=== PATIENT | female | born 1960 | race Caucasian/White ===

== ENCOUNTER 2017-07-07 10:14 | Day surgery (SDC) | payer OTHER ==
[2017-07-07] VITALS (12 sets, daily range): BP systolic 124–141; BP diastolic 51–65; PULSE 66–89; RESP 16–21
--- NOTE | 2017-07-07 07:04 | PREOPHP ---
DATE OF ADMISSION: 07/07/2017 REASON FOR ADMISSION: A 58-year-old patient is going to be admitted for diagnostic arthroscopy of the left knee, partial mediolateral meniscectomy, possibility of repair, plica release, application of Parkinson dressing. HISTORY OF PRESENT ILLNESS: This 58-year-old patient has been experiencing knee pain for quite awhile. Conservative treatment resulted in little benefit to the patient and the patient as requested surgical intervention. PAST MEDICAL HISTORY: Unremarkable. SOCIAL HISTORY: Nonsmoker, nondrinker. FAMILY HISTORY: Negative. ALLERGIES: ALLERGY. MEDICATIONS: 1. Amlodipine. 2. Sulindac. 3. Folic acid. 4. D3. 5. For postop Tylenol #3 and Bactrim DS. REVIEW OF SYSTEMS: PHYSICAL EXAMINATION: SKIN: Within normal limits. HEENT: PERRLA. Head and neck normocephalic. Trachea midline. CARDIAC: Normal sinus rhythm, S1 and S2 normal. No murmur, no JVD, no peripheral edema. LUNGS: Clear. ABDOMEN: Soft, scaphoid, no organomegaly, no mass, bowel sounds present. GENITOURINARY AND RECTAL: Not done, not pertinent to this admission. MUSCULOSKELETAL EVALUATION: Height 5 feet 5 inches, weighing 150 pounds. Head and neck unremarkable. Upper extremities normal. Normal neurovascular examination. Spine shows no tenderness. Range of motion normal. Hips and lower extremities symmetrical and normal except for knees. There is mild synovitis and effusion present in both knees. Range of motion is 0 to 120 degrees. Tenderness to the medial and lateral tibial femoral joint line. There is tenderness to the medial and lateral patellofemoral joint line. No instability. DIAGNOSTIC DATA: MRI of left knee indicates torn medial meniscus, torn lateral meniscus, some arthritis, joint effusion. IMPRESSION: Torn medial meniscus and torn lateral meniscus, left knee. PLAN: Alternatives, risks and benefits discussed. The patient understands the possibility of complications from surgery such as infection, nerve damage, vascular damage, possibility of deep venous thrombosis, pulmonary embolism, hypersensitivity from medication and even . Williams result may not be obtained depending on known or unknown factor or factors. Formal H and P supposed to be done by PCP. Dictated By: Walter Moreno MD /kera/flo /Document#: [id number]
[~2017-07-07 10:14] MED LIST: CEFAZOLIN 1 GM INJ ONE; SEVOFLURANE 15 MIN ONE
[2017-07-07] MEDS ORDERED: AMLO-147 PO (11:43)
[2017-07-07] MEDS ORDERED: LIDOCAINE 2% (SDV) 5 ML INJ ONE (12:00)
[2017-07-07] MEDS ORDERED: PROPOFOL 20 ML ONE (12:01)
[2017-07-07] MEDS ORDERED: FENTAnyl 50 MCG/ML VIAL ONE ×2 (12:01→14:14)
[2017-07-07] MEDS ORDERED: ROCURONIUM 50 MG INJ ONE (12:01)
[2017-07-07] MEDS ORDERED: NEOSTIGMINE 3 MG/3 ML SYRINGE ONE (12:01)
[2017-07-07] MEDS ORDERED: GLYCOPYRROLATE 0.4 MG INJ ONE (12:01)
[2017-07-07] MEDS ORDERED: MIDAZOLAM 1 MG/ML 2 ML INJ ONE (12:01)
[2017-07-07] MEDS ORDERED: ONDANSETRON 4 MG INJ ONE (12:03)
[2017-07-07] MEDS ORDERED: DEXAMETHASONE 4 MG/ML 1 ML INJ ONE (12:03)
[2017-07-07] MEDS ORDERED: SUGAMMADEX SODIUM 200 MG/2 ML VIAL IV ONE (12:04)
[2017-07-07] MEDS ORDERED: SODIUM CL BACTERIOSTATIC 30 ML INJ ONE (12:06)
[2017-07-07] MEDS ORDERED: morphine SULFATE/PF (10 MG/10 ML) INJ ONE (12:07)
[2017-07-07] MEDS ORDERED: EPINEPHrine 1 MG/ML 30 ML INJ ONE (13:00)
--- NOTE | 2017-07-07 13:53 | SIPON ---
Date/Time of Note Date/Time of Note DATE: 07/07/17 TIME: 13:50 Operative Report Free Text/Dictation No assist Preoperative Diagnosis Torn meniscus left knee and synovitis Postoperative Diagnosis The same Operation/Procedure Performed Diagnostic arthroscopy subtotal medial meniscus partial lateral portion was seen complication of April Surgeon: FELIX RUSSELL MD Anesthesia Type: general Estimated Blood Loss: minimal Transfusion Required: no Specimen: none Grafts/Implants: none Complications: no FELIX RUSSELL MD Jul 07, 2017 13:53
[2017-07-07] MEDS ORDERED: HYDROCODONE/APAP (5/325) TAB PO PRN ×2 (14:00)
--- NOTE | 2017-07-07 14:03 | RADRPT ---
PROCEDURE: XR Chest. CLINICAL INDICATION: Preoperative for knee surgery. TECHNIQUE: Single frontal view. COMPARISON: None. FINDINGS: The lungs are clear. The heart size is normal. There is calcification in the aorta consistent with atherosclerosis. There is no pleural effusion. There is no pneumothorax. IMPRESSION: 1. Atherosclerosis. 2. Otherwise normal chest radiograph. RPTAT: QQ .Nicola Miller MD, MD Date Time Electronically viewed and signed by .Nicola Miller MD, MD on 07/07/2017 14:02 .R/
[2017-07-07] MEDS ORDERED: FENTAnyl 50 MCG/ML VIAL IV PRN ×2 (14:30)
[2017-07-07] MEDS ORDERED: ONDANSETRON 4 MG INJ IV STA (15:26)
--- NOTE | 2017-07-07 15:44 | OPR ---
DATE OF OPERATION: 07/07/2017 PREOPERATIVE DIAGNOSIS: Torn menisci, left knee, and synovitis. POSTOPERATIVE DIAGNOSIS: Torn menisci, left knee, and synovitis. OPERATIONS PERFORMED: 1. Subtotal medial meniscectomy. 2. Partial lateral meniscectomy. 3. Synovectomy. 4. Application of Parkinson dressing. ANESTHESIA: General. ESTIMATED BLOOD LOSS: Minimal. COMPLICATIONS: None. OPERATIVE PROCEDURE: The patient was transferred to the operating room and placed onto the operating table in supine position. General anesthesia was induced. One gram of Ancef was given IV. The patient's left lower extremity was prepped and draped in the routine fashion. Landmarks were marked, 2 regular and 2 anterior portals, and operative arthroscopy was commenced. Examination of suprapatellar pouch indicates normal findings, a nonfibrotic small plica band was identified. There was a lot of debris in the knee. There was also some loose body in medial and lateral compartment. The patella was engaging a 35 degree trochlear groove, grade 2 chondromalacia of both sides. Going to the medial compartment, there was grade 2, minimally grade 3 chondromalacia present on the articular surface, especially from the condyles. There was a complex tear all the way from the anterior horn middle third and posterior horn of the lateral meniscus. Therefore, partial medial menisectomy to stable margins were done. This was a complex tear, a combination of vertical tear, flap tear, cartilage tear and oblique tear present. The ACL was intact. The lateral compartment indicates 2 mm grade 3 chondromalacia. There was flap tear of the fossa or horn of the root which was taken of with an ArthroCare Bovie. There was synovitis present in the anterior and lateral compartments that was taken care of by shrinkage with bevels. The knee was evacuated of debris with copious amounts of saline irrigation. The portals were closed with Benzoin and Steri-Strips. Duramorph 10 mg mixed with 10 mL of injectable saline was injected into the knee. A Parkinson dressing was applied. The procedure was terminated. General anesthesia was stopped. The patient was taken to the recovery room in good, stable condition. Dictated By: Walter Moreno MD /kera/flo /Document#: [id number]
== END 2017-07-07 16:58 | disposition home or self-care (01) ==
LOC: SDS 10:14
PROVIDERS: ATTEND Internal Medicine Endocrinology, Diabetes & Metabolism
DX: M23.201 Derangement of unspecified lateral meniscus due to old tear or injury, left knee (principal); M23.204 Derangement of unspecified medial meniscus due to old tear or injury, left knee; I10 Essential (primary) hypertension
CPT/HCPCS: 29880; 71010; C1713; J0171; J0690; J1100; J2250; J2274; J2405; J2710; J3010; Z7512; Z7610